=== PATIENT | female | born 1960 | race Caucasian/White ===

== ENCOUNTER → 2020-12-10 | Outpatient (CLI) | payer OTHER ==
[~2020-12-10] MED LIST: BUMEX 1MG TABLET1 MG PO; CELEXA20 MG PO; COLCHICINE 0.60.6 MG PO; COZAAR50 MG PO; GLUCOPHAGE XR500 MG PO; HYDROCHLOROTH12.5 MG PO; K-DUR TAB 20 M20 MEQ PO; LOPRESSOR50 MG PO; MIRTAZAPINE45 MG PO; ONDANSETRON ODT8 MG PO; PHENERGAN 25 MG25 M1 PO; PREDNISONE5 MG PO; PROTONIX40 MG PO; ZOCOR10 MG PO
[2020-12-10 08:24] LABS: HEMOGLOBIN 12.2 gm/dl (12.3-15.3); RED BLOOD COUNT 4.25 M/UL (4.00-5.10); WHITE BLOOD COUNT 4.8 K/UL (4.5-11.0)
[2020-12-10 08:49] LABS: BUN/CREATININE RATIO 16 (0-10)
== END ==
LOC: LAB 07:15
PROVIDERS: Internal Medicine
DX: E55.9 Vitamin D deficiency, unspecified (principal); R53.83 Other fatigue; R73.09 Other abnormal glucose; E78.5 Hyperlipidemia, unspecified; I10 Essential (primary) hypertension; Z79.899 Other long term (current) drug therapy
CPT/HCPCS: 36415; 80053; 80061; 82607; 82746; 83036; 84439; 84443; 85025

== ENCOUNTER → 2021-04-22 | Outpatient (CLI) | payer OTHER | LOC: US 12:05 | DX: M25.561 Pain in right knee (principal); M25.562 Pain in left knee; M79.605 Pain in left leg; M25.769 Osteophyte, unspecified knee | CPT/HCPCS: 73564; 93971 ==

== ENCOUNTER 2021-06-07 12:42 | Emergency (ER) | payer OTHER ==
[2021-06-07] MEDS ORDERED: BACTRIM 400-801 EACH PO (15:00)
== END 2021-06-07 15:15 | disposition home or self-care (01) ==
LOC: ER1 12:42
DX: L02.412 Cutaneous abscess of left axilla (principal); L02.01 Cutaneous abscess of face; I10 Essential (primary) hypertension; Z88.8 Allergy status to other drugs, medicaments and biological substances
CPT/HCPCS: 10060; 99283

== ENCOUNTER 2021-06-10 17:34 | Emergency (ER) | payer OTHER ==
[~2021-06-10 17:34] MED LIST changes: +BACTRIM 400-801 EACH PO
[2021-06-10 22:28] LABS: HEMOGLOBIN 12.1 gm/dl (12.3-15.3); RED BLOOD COUNT 4.18 M/UL (4.00-5.10); WHITE BLOOD COUNT 5.6 K/UL (4.5-11.0)
[2021-06-11] MEDS ORDERED: BACTRIM 400-801 EACH PO (01:22)
== END 2021-06-11 01:40 | disposition home or self-care (01) ==
LOC: ER1 17:34
PROVIDERS: Physician Assistant
DX: L03.213 Periorbital cellulitis (principal); L02.412 Cutaneous abscess of left axilla; H44.002 Unspecified purulent endophthalmitis, left eye; E11.9 Type 2 diabetes mellitus without complications; Z90.49 Acquired absence of other specified parts of digestive tract; Z90.710 Acquired absence of both cervix and uterus
CPT/HCPCS: 70481; 80053; 83605; 85025; 87040; 87070; 87077; 87186; 87205; 96374; 96375; 99284; J1642; J3370; J7070; Q9967

== ENCOUNTER → 2021-06-11 | Outpatient (CLI) | payer OTHER ==
[~2021-06-11] VITALS: Ht 172.7 cm; Wt 134.3 kg
[~2021-06-11] MED LIST changes: +NAPROSYN500 MG PO
== END ==
LOC: OPSV 12:52
DX: L02.91 Cutaneous abscess, unspecified (principal)
CPT/HCPCS: 96365; 96366; J1642; J3370; J7070

== ENCOUNTER 2021-06-21 10:57 | Emergency (ER) | payer OTHER ==
[~2021-06-21 10:57] MED LIST changes: -NAPROSYN500 MG PO
[2021-06-21] MEDS ORDERED: NAPROSYN500 MG PO (13:05)
== END 2021-06-21 13:40 | disposition home or self-care (01) ==
LOC: ER1 10:57
DX: L02.414 Cutaneous abscess of left upper limb (principal); Z90.49 Acquired absence of other specified parts of digestive tract; Z90.89 Acquired absence of other organs; Z90.710 Acquired absence of both cervix and uterus; Z88.8 Allergy status to other drugs, medicaments and biological substances
CPT/HCPCS: 10060; 99282

== ENCOUNTER → 2021-11-18 | Outpatient (CLI) | payer OTHER ==
[~2021-11-18] MED LIST changes: +NAPROSYN500 MG PO
== END ==
LOC: KOH-I 12:50
DX: J45.909 Unspecified asthma, uncomplicated (principal)
CPT/HCPCS: 71046

== ENCOUNTER → 2021-11-26 | Outpatient (CLI) | payer OTHER ==
[~2021-11-26] VITALS: Ht 172.7 cm; Wt 127.0 kg
== END ==
LOC: EROP 11:05
DX: U07.1 COVID-19 (principal); Z23 Encounter for immunization; I10 Essential (primary) hypertension; I51.9 Heart disease, unspecified
CPT/HCPCS: M0247; Q0247

== ENCOUNTER → 2021-12-09 | Outpatient (CLI) | payer OTHER | LOC: CT 10:30 → ECHO 12:15 → CT 15:00 | DX: J84.9 Interstitial pulmonary disease, unspecified (principal); I51.7 Cardiomegaly | CPT/HCPCS: ECHO; 71250; 93306 ==

== ENCOUNTER → 2022-06-22 | Outpatient (CLI) | payer OTHER | LOC: EXRD 15:45 | DX: E04.2 Nontoxic multinodular goiter (principal) | CPT/HCPCS: 76536 ==